=== PATIENT | male | born 1965 | race African-American/Black ===

== ENCOUNTER 2016-09-25 10:04 | Emergency (ER) | payer OTHER ==
[~2016-09-25 10:04] MED LIST: ADVAIR 100-501 EAC1 IH; ALBUTEROL17 GM INH; ASPIRIN325 M1 PO; BACLOFEN10 MG PO; CIALIS PO; COMBIVENT U/D3 M1 INH; DUONEB 2.5-0.5 M3 ML NEB; FLEXERIL10 MG PO; MOBIC15 MG PO; ORUDIS75 M1 PO; PREDNISONE PO; PREDNISONE10 MG PO; PREDNISONE50 MG PO; SINGULAIR PO; VIBRAMYCIN100 M1 PO; VICODIN 5/1 TAB 5/50 PO; ZITHROMAX PO
== END 2016-09-25 13:33 | disposition home or self-care (01) ==
LOC: CFTX 10:04
DX: N49.2 Inflammatory disorders of scrotum (principal); J45.909 Unspecified asthma, uncomplicated; F17.210 Nicotine dependence, cigarettes, uncomplicated
CPT/HCPCS: 96365; 96366; 96375; 99284; J1885; J3370

== ENCOUNTER 2016-09-27 04:20 | Observation (INO) | payer OTHER ==
--- NOTE | ~2016-09-27 | CO ---
Unit #: [id number] #: [id number] Patient: ALBER PARADA [id number] [address] [address] [id number] [place] MR#: [id number] NAME: LABER PARADA ROOM: 201 Age: 50 Sex: M Admission Date: 09/27/2016 : 1965 Attending Physician: Leonor Arana M.D. Primary Care Physician: Leonor Arana M.D. CONSULTATION REPORT CHIEF COMPLAINT Scrotal swelling, pain. HISTORY OF PRESENT ILLNESS Mr. Parada is a 50-year-old male I have seen recently and in the past. In the past, I performed excision of a scrotal cyst and penile cyst. 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 These were inclusion cysts. I saw him the end of last year and he had a recurrence of these inclusion cysts/squamous cell carcinoma. I had sent him a certified letter a few years before because he did not keep his followup. I have him on the schedule tomorrow to undergo excision of these cysts and squamous cell carcinoma but the patient was admitted to the hospital yesterday. Prior to my arrival to the floor, the patient had been squeezing and compressing an area on the scrotum that was a cyst and/or abscess. It ruptured, it had a foul odor. The patient feels a lot better since this happened. The patient was in the room after being retrieved from downstairs outside smoking. PAST MEDICAL HISTORY 1. Penile and scrotal skin excision. 2. Squamous cell carcinoma. 3. Asthma - he uses an inhaler. ALLERGIES No known drug allergies. SOCIAL HISTORY Positive for smoking. FAMILY HISTORY Noncontributory. PHYSICAL EXAMINATION He is afebrile. He has got multiple inclusion cysts on his penis starting at the base and going up to about mid shaft. On the left side of the scrotum he has a larger area of a cyst-like structure but also an open wound/cyst that was likely the source for the abscess and foul smell/discharge. It has drained. White count is normal. ASSESSMENT Scrotal cyst and/or abscess that has spontaneously drained after patient manipulated it here in the hospital. The patient has antibiotics at home. He received antibiotics here. As I mentioned, he is on the OR schedule tomorrow for excision and/or debridement. I will keep him on the Unit #: [id number] #: [id number] Patient: ALBER PARADA schedule. Okay to discharge him home and perform the procedure tomorrow. He will go home with some ABD dressing and he will continue his antibiotics tonight and be NPO after midnight. Dictated by... Alejandro Cuevas/brad TD: 09/28/2016 08:21 JOB #: [id number] CONSULTATION REPORT X Jerry Perez MD X CONSULTATION REPORT
--- NOTE | ~2016-09-27 | DS ---
Unit #: [id number] #: [id number] Patient: JOSE PARADA [id number] [facility]. [address] [address] [id number] I MR#: [id number] NAME: JOSE PARADA ROOM: 201 Age: 50 Sex: M Admission Date: 09/27/2016 : 1965 Discharge Date: 09/27/2016 Attending Physician: Leonor Arana M.D. Primary Care Physician: Leonor Arana M.D. DISCHARGE SUMMARY SHORT STAY SUMMARY ADMISSION AND DISCHARGE DIAGNOSES 1. Scrotal abscess, status post I and D at the bedside per urology. 2. History of chronic obstructive pulmonary disease. HISTORY OF PRESENT ILLNESS Mr. Jose Parada is a 50-year-old, -Malag[place] gentleman who was a direct admission secondary to scrotal edema, swelling, and pain. He was admitted and started on antibiotics. His scrotal ultrasound was done, which showed some abscess. He was evaluated by urology and underwent the bedside I and D for the left scrotal abscess. Patient currently states that his pain is much better. He started to experience these problems about 2-3 days ago and gradually got worse. Denies any fever or chills. Denies any headache. Denies any dizziness. Denies any nausea, vomiting, diarrhea, or abdominal pain. REVIEW OF SYSTEMS So, 12-point review of systems on this patient is basically negative, except as above. PAST MEDICAL HISTORY Significant for history of COPD. PAST SURGICAL HISTORY None. HOME MEDICATIONS He was taking Symbicort at home. ALLERGIES No known drug allergies. SOCIAL HISTORY He continues to smoke. Denies any illicit drugs. States that he drinks beer every now and then. FAMILY HISTORY Unremarkable. PHYSICAL EXAMINATION GENERAL APPEARANCE: Patient is a 50-year-old -Malag[place] gentleman in no acute distress. VITAL SIGNS: BP 128/61, heart rate 103, respirations 18, and temperature Unit #: [id number] #: [id number] Patient: JOSE PARADA 99. HEENT: Head is atraumatic. Pupils are equal, round, and reactive to light and accommodation. Extraocular muscles are intact. . Oropharynx clear. NECK: Supple. No mass. No JVD. No bruits. CHEST: Diminished bilaterally at the bases, but generally clear. CARDIOVASCULAR: Normal S1 and S2. No murmurs. ABDOMEN: Soft, nontender, and nondistended. LOWER EXTREMITIES: Without any cyanosis, clubbing, or edema. GENITOURINARY: Significant for right scrotal erythema and swelling. Now with the dressing. NEUROLOGIC: Patient grossly intact. No focal deficits. DIAGNOSTIC STUDIES IMAGING: Ultrasound as above. Full report is currently pending. LABORATORY: Chemistry unremarkable, except sodium of 132 and calcium 8.3. ASSESSMENT AND PLAN 1. Right scrotal edema with the dose of IV vanc., status post evaluation per urology. Bedside I and D today. Was discharged home with the Bactrim DS 1 tablet b.i.d. Patient is to follow up with [facility] again at the [place] office tomorrow morning for further I and D and debridement needs. Appointment has been scheduled per urology. 2. History of COPD. Continue home Symbicort. Currently at the baseline. DISCHARGE MEDICATIONS 1. Symbicort. 2. Double strength Bactrim, as above. DISCHARGE INSTRUCTIONS 1. Patient is to follow up, again, with urology tomorrow morning at the [place]. 2. Outpatient followup with the primary care physician in next 2-3 days. Dictated by... Alejandro Elliott/nikki TD: 09/28/2016 06:30 JOB #: [id number] DISCHARGE SUMMARY X Garfield Correa MD X DISCHARGE SUMMARY
--- NOTE | ~2016-09-27 | US115 ---
[facility] A Service of [facility] & [facility] RADIOLOGY TEXT RESULTS PATIENT: ALBER PARADA LOCATION: C2A 201- : [birth year] UNIT #: [id number] AGE: [address]: Leonor Arana MD SEX: M ORDER DR: [id number] [facility] [address] [place], [place] [address] [id number] I MR#: [id number] Acc #: [id number] NAME: ALBER PARADA : 1965 SEX: M STUDY DATE/TIME: 09/27/2016 10:22 UNIT: A ROOM: 201 STUDY DESCRIPTION: US Scrotum and Contents Attending Physician: Leonor Arana M.D. Ordering Physician: Leonor Arana M.D. Primary Care Physician: eLonor Arana M.D. MEDICAL IMAGING REPORT This report is preliminary unless electronic signature is present EXAM Bilateral scrotal ultrasound with Doppler imaging. DATE 09/27/2016 HISTORY Patient complains of large palpable area superior to the testicles for 5 days. History of prior abscess that presented the same way and was drained years ago. COMPARISON Bilateral scrotal ultrasound 09/24/2016. FINDINGS Real-time bryant-scale, color Doppler and SPECTRAL Doppler imaging was performed of the scrotal structures bilaterally. The examination is abnormal. A 7.1 x 3.6 x 5.7cm hypoechoic solid-appearing soft tissue nodular density is seen along the superior margin of the scrotal sac extending somewhat posterior along the midline above the level of the testicles. This lesion measures 7.1 x 3.6 x 5.7 cm. It does not appear frankly hypervascular on color Doppler imaging and is somewhat heterogeneous. It does not have a typical sonographic signature of herniated bowel. It is not definitely contiguous to the testicles, either. It cannot be seen, even retrospectively, on the submitted images from the testicular ultrasound from 09/24/2016. The right testicle measures 3.2 x 1.7 x 4.7 cm. The left testicle measures 2.3 x 1.7 x 4.2 cm. Both testicles demonstrate normal homogeneous echotexture. Both testicles demonstrate normal color and spectral Doppler flow. [facility]. [facility] A Service of [facility] RADIOLOGY TEXT RESULTS PATIENT: ALBER PARADA LOCATION: [facility] 201-01 : [birth year] UNIT #: [id number] AGE: [address]: Leonor Arana MD SEX: M ORDER DR: A left epididymal head cyst or spermatocele measures 10.0 x 7.4 x 7.4 mm. Small left scrotal hydrocele is present. There is a small left scrotal varicocele. Mildly complex small right scrotal hydrocele. The right epididymis appears unremarkable. IMPRESSION 1. The examination is abnormal. There is a heterogeneous solid appearing structure superior to the testicles at the site of patient's palpable complaint measuring 7.1 x 3.6 x 5.7 cm. Soft tissue mass or malignancy cannot be excluded based upon sonographic features alone. This does not have the typical appearance of an abscess. It does not have a typical appearance of herniated bowel, either. CT abdomen and pelvis with IV and oral contrast would be recommended for additional evaluation at this time, with the pelvic imaging to extend into the upper thigh regions to include the entirety of the scrotum. 2. Small bilateral scrotal hydroceles. 3. 1 cm left epididymal head cyst or spermatocele. 4. Small left scrotal varicocele. 5. Normal sonographic appearance of the testicles with normal flow. Dictated by... Cara Trivedi M.D. THIS IS AN ELECTRONICALLY VERIFIED REPORT Cara Trivedi M.D. at 09/28/2016 10:06 PM REYNALDO/andre TD: 09/27/2016 14:17 JOB #: [id number] MEDICAL IMAGING REPORT COPY
[2016-09-27] MEDS ORDERED: SYMBICORT INH (10:04)
[2016-09-27 15:27] LABS: BLOOD UREA NITROGEN 11 mg/dL (9-23); BUN/CREATININE RATIO 12.22; CALCIUM SERUM 8.3 mg/dL (8.4-10.2); CARBON DIOXIDE 22 mmol/L (22-31); CHLORIDE 105 mmol/L (100-111); CREATININE SERUM 0.9 mg/dL (0.6-1.4); GLOM FILT RATE Estimated ABOVE60 mL/min (>60); GLUCOSE FASTING 109 mg/dL (70-110); POTASSIUM 3.8 mmol/L (3.5-5.1); SODIUM 132 mmol/L (135-145)
[2016-09-27] MEDS ORDERED: SULFATRIM 800-120 ML PO (17:16)
[2016-09-27] MEDS ORDERED: LORTAB 5-325 M1 EACH PO (17:17)
== END 2016-09-27 17:56 | disposition home or self-care (01) | DRG 728 ==
LOC: C2A 04:20
PROVIDERS: Physician Assistant Medical
DX: N49.2 Inflammatory disorders of scrotum (principal); N43.3 Hydrocele, unspecified; I86.1 Scrotal varices; J44.9 Chronic obstructive pulmonary disease, unspecified; F17.200 Nicotine dependence, unspecified, uncomplicated; J45.909 Unspecified asthma, uncomplicated; Z85.828 Personal history of other malignant neoplasm of skin
CPT/HCPCS: 76870; 80048; 87086; 96374; 96376; G0378; J3370

== ENCOUNTER 2016-10-01 09:08 | Emergency (ER) | payer OTHER ==
[~2016-10-01 09:08] MED LIST changes: +LORTAB 5-325 M1 EACH PO; +SULFATRIM 800-120 ML PO; +SYMBICORT INH
== END 2016-10-01 09:10 | disposition home or self-care (01) ==
LOC: CED 09:08
DX: N99.89 Other postprocedural complications and disorders of genitourinary system (principal); N50.89 Other specified disorders of the male genital organs; J45.909 Unspecified asthma, uncomplicated; F17.210 Nicotine dependence, cigarettes, uncomplicated; Z98.890 Other specified postprocedural states
CPT/HCPCS: 99282